=== PATIENT | male | born 1970 | race Two or more races ===

== ENCOUNTER → 2017-08-12 | Outpatient (CLI) | payer BC ==
[2017-08-12 16:12] LABS: ALANINE AMINOTRANSFERASE 46 U/L (21-72); ASPARTATE AMINO TRANSFERASE 20 U/L (17-59)
== END ==
LOC: OD 15:06
PROVIDERS: ATTEND Podiatrist Foot Surgery
DX: B25.1 Cytomegaloviral hepatitis (principal)
CPT/HCPCS: 36415; 84450; 84460